=== PATIENT | female | born 1950 | race Caucasian/White ===

== ENCOUNTER 2018-01-01 15:31 | Emergency (ER) | payer OTHER ==
[~2018-01-01] VITALS: Ht 157.5 cm; Wt 81.6 kg
[2018-01-01] VITALS (8 sets, daily range): BP systolic 104–120; BP diastolic 60–72
[2018-01-01] MEDS ORDERED: Morphine Sulfate 4mg/ml Inj IVP ONE ×2 (15:45→18:00)
[2018-01-01 16:13] LABS: BASOPHILS % (AUTO) 0.4 % (0.0-2.0); EOSINOPHILS % (AUTO) 0.4 % (0.0-3.0); HEMATOCRIT 46.6 % (37.0-47.0); HEMOGLOBIN 15.2 G/DL (12.0-16.0); LYMPHOCYTES % (AUTO) 14.2 % (20.0-45.0); MEAN CORPUSCULAR VOLUME 92 FL (80-99); MONOCYTES % (AUTO) 2.4 % (1.0-10.0); NEUTROPHILS % (AUTO) 82.6 % (45.0-75.0); PLATELET COUNT 259 K/UL (150-450); RED BLOOD COUNT 5.05 M/UL (4.20-5.40); RED CELL DISTRIBUTION WIDTH 12.3 % (11.6-14.8); WHITE BLOOD COUNT 17.9 K/UL (4.8-10.8)
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
[2018-01-01 16:40] LABS: ANION GAP 8 mmol/L (5-15); BLOOD UREA NITROGEN 20 mg/dL (7-18); CALCIUM 9.3 MG/DL (8.5-10.1); CARBON DIOXIDE 28 MMOL/L (21-32); CHLORIDE 103 MMOL/L (98-107); CREATININE 1.2 MG/DL (0.55-1.30); POTASSIUM 3.5 MMOL/L (3.5-5.1); SODIUM 139 MMOL/L (136-145)
[2018-01-01] MEDS ORDERED: Morphine Sulfate 4mg/ml Inj IM ONE (16:45)
[2018-01-01 16:54] LABS: ALANINE AMINOTRANSFERASE 117 U/L (12-78); ALBUMIN 3.6 G/DL (3.4-5.0); ALBUMIN/GLOBULIN RATIO 0.8 (1.0-2.7); ALKALINE PHOSPHATASE 69 U/L (46-116); ASPARTATE AMINO TRANSFERASE 172 U/L (15-37); BILIRUBIN,TOTAL 0.5 MG/DL (0.2-1.0); CKMB 6.2 NG/ML (0.0-3.6); CREATINE KINASE 404 U/L (26-308)
[2018-01-01] MEDS ORDERED: TRANDOLAPRIL1 MG PO (17:15)
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
[2018-01-01] MEDS ORDERED: Lidocaine 1% MPF 10mg/ml 5ml ONE (17:22)
[2018-01-01] MEDS ORDERED: Lidocaine 1% MPF 10mg/ml 5ml IM ONE ×2 (17:30→18:00)
[2018-01-01] MEDS ORDERED: HYDROmorphone 2mg tab ORAL ONE (19:15)
[2018-01-01] MEDS ORDERED: HYDROmorphone 1mg/ml Carpuject IVP ONE ×2 (19:15→20:45)
--- NOTE | 2018-01-02 09:10 | Diagnostic Imaging Report ---
Indication: Chest pain, pneumothorax on prior CT scan Technique: One view of the chest Comparison: Reference made to CT scan of earlier the same date. Findings: There is a right chest vent catheter in place, tip projected in the region of the lateral right hemithorax. No definite pneumothorax is visible. Lateral parenchymal opacities likely reflect areas of consolidation or contusion described on recent CT. There is a small amount of extrathoracic emphysema. Multiple bilateral rib fractures are noted. A small amount of extrathoracic emphysema is noted on the left. No pneumothorax on the left. The heart is borderline enlarged. The pleural spaces are clear, left pleural effusion described on recent chest CT is not visible. There is some atelectasis at the left lung base. Impression: No pneumothorax, status post right chest vent catheter placement Bilateral rib fractures and bilateral extrathoracic emphysema Cardiomegaly Right lung peripheral parenchymal opacities, likely areas of contusion. Left basilar atelectasis
--- NOTE | 2018-01-02 15:18 | Cardiology Report ---
APPROVED REPORT EKG Measurement Heart [id number] MS [id number] Normal sinus rhythm Left bundle branch block Abnormal ECG
== END 2018-01-01 21:15 | disposition short-term general hospital (02) ==
LOC: EDBD 15:31 → EMR 15:52
DX: S22.43XA Multiple fractures of ribs, bilateral, initial encounter for closed fracture (principal); S42.001A Fracture of unspecified part of right clavicle, initial encounter for closed fracture; S27.0XXA Traumatic pneumothorax, initial encounter; V49.40XA Driver injured in collision with unspecified motor vehicles in traffic accident, initial encounter; Y92.410 Unspecified street and highway as the place of occurrence of the external cause; R79.89 Other specified abnormal findings of blood chemistry; K44.9 Diaphragmatic hernia without obstruction or gangrene
CPT/HCPCS: 32551; 36415; 36569; 71045; 71250; 80053; 82550; 82553; 83880; 84484; 85025; 93005; 96361; 96372; 96374; 96375; 99291; J1170; J2270